=== PATIENT | female | born 1985 | race Caucasian/White ===

== ENCOUNTER 2025-01-09 09:20 | Outpatient (AMB) | payer BC, SELFPAY ==
--- NOTE | 2025-01-09 09:40 | MHC.PC.OV ---
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 Allergies Cats Allergy (Intermediate, Uncoded 01/09/25 09:43) Runny eyes, welts, runny nose Tobacco use date assessed: 01/09/25 Dental Screening Dental Screen Date: 01/09/25 Did you have a dental visit in the last 12 months?: Yes Did you have a dental problem in the last 6 months where you did not have access to dental care?: No Was dental information given to patient?: Patient has dentist HPI HPI Comments History of Present Illness Details This is a 39-year-old female presenting to establish care and have a physical exam. She transferred from [facility]. We discussed that I did not receive medical records yet. 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 She believes she received Tdap vaccine when she was with her 5-year-old daughter. Patient says overall she is healthy, but she has been feeling fatigued over the past 3-6 months. Her daughter was diagnosed with type 1 diabetes about a year ago. Sleep is disrupted frequently due to blood sugars. 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 She talked to the her needleworker about this at her recent annual exam at [facility]. Patient reports they did a thyroid test in a blood count, and both came back normal. Denies snoring or apneic episodes. No tick bites or skin rashes. She feels that she is handling stress okay, and she declines management and referrals for behavioral health. The patient's mother is diagnosed with BRCA2. She had some cancerous cells in her uterus. The patient's maternal grandmother had ovarian cancer and thyroid cancer. The patient has not been tested for genetic mutations. She had a left breast biopsy at [facility] that was negative for malignancy. Mammogram is up-to-date. She is referred to Dermatology for a skin exam. She has a few moles on her face that have been there a very long time, but she has noticed they are raised, and they used to be flat. She does not receive flu vaccine. ROS: Constitutional: No unexplained weight loss, fever, chills, fatigue or night sweats. Eyes: No vision changes, blurry vision, double vision, eye pain, eye redness, eye discharge. ENT: No hearing loss, sneezing, congestion, runny nose or sore throat. Respiratory: No shortness of breath, cough or sputum production. Cardiovascular: No chest pain, chest pressure or chest discomfort. No palpitations or pedal edema. Gastrointestinal: No anorexia, nausea, vomiting or diarrhea. No abdominal pain or blood in stool. Genitourinary: No dysuria, hematuria, urinary frequency. Neurologic: No headache, dizziness, syncope, unilateral weakness, ataxia, numbness or tingling in the extremities. Musculoskeletal: No muscle pain, back pain, joint pain or swelling. Hematologic/Lymphatics: No bleeding or bruising. No painful lymph nodes. Skin: No rash or itching. Endocrine: No cold or heat intolerance. No polyuria or polydipsia. Psychiatric: No depression or HI/SI. Physical exam: Constitutional: Alert, in no distress. Head: Normocephalic. Eyes: Pupils are equal, round and reactive to light. Extraocular muscles intact. Ear, Nose and Throat: Canals clear. TMs normal. Normal nasal mucosa. No nasal discharge. No oral lesions. Neck: Supple, Full range of motion. No lymphadenopathy. No palpable thyroid masses. Respiratory: Clear to auscultation. Cardiovascular: S1 S2 regular. No murmurs.. Gastrointestinal: Abdomen soft, non-tender, non-distended. Normal bowel sounds. No palpable masses.. Neurologic: No focal neurological deficits. Symmetric patellar reflexes. Moves all extremities spontaneously. Sensation intact bilaterally. Skin: Multiple, Small, raised dark brown nevi on the face with symmetric borders. Musculoskeletal: No gross deformities. Normal range of motion. Extremities: Warm and well perfused. No clubbing, cyanosis or edema. 3+ peripheral pulses bilaterally. Psychiatric: Normal mood and affect [facility] Medical History (Updated 01/09/25 @ 10:46 by EUGENIO Villanueva) Family history of BRCA2 gene positive Routine physical examination Screening for cardiovascular condition Fatigue Family History (Updated 01/09/25 @ 09:50 by Karime Hudson MA) Mother Hypertension Thyroid disease Father High cholesterol Diabetes Stroke Maternal Grandmother Thyroid disease Thyroid cancer Ovarian cancer Maternal Grandfather Prostate cancer Brother Stroke Social History (Updated 01/09/25 @ 09:45 by Karime Hudson MA) Housing: House Alcohol intake: never Patient Tobacco Use Status: Never used Tobacco e-Cigarette/Vaping Use: Never Used Second Hand Smoke Exposure: No service: No Current occupational status: employed 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 1. Little interest or pleasure in doing things: not at all 2. Feeling down, depressed, or hopeless: not at all 3. Trouble falling or staying asleep, or sleeping too much: nearly every day 4. Feeling tired or having little energy: nearly every day 5. Poor appetite or overeating: more than half the days 6. Feeling bad about yourself - or that you are a failure or have let yourself or your family down: not at all 7. Trouble concentrating on things, such as reading the newspaper or watching television: not at all 8. Moving or speaking so slowly that other people could have noticed. Or the opposite - being so fidgety or restless that you have been moving around a lot more than usual: not at all 9. Thoughts that you would be better off or of hurting yourself in some way: not at all Total score: 8 Depression Screening Interpretation: Positive Depression Screening Follow-up: Other (Patient denies depression. See HPI regarding fatigue and sleep.) Depression Screening Done: Yes 82272 - PHQ-9 Billing: Patient declined-do not bill Source: Developed by Drs. Marcus Fox, Florinda Alexander, Jermaine Peters and colleagues, with an educational cecy from [employer]. Thrive Questionnaire Date Thrive assessed: 01/09/25 I am a: Patient What is your living situation today?: I have a steady place to live Within the past 12 months, did the food you bought not last and you didn't have the money to get more?: Never true Within the past 12 months, did you worry whether your food would run out before you got money to buy more?: Never true Do you have trouble paying for medicines?: No Do you have trouble getting transportation to medical appointments?: No Do you have trouble paying your heating and electricity bill?: No Do you have trouble taking care of your child, family member or friend?: No Do you have trouble with day-to-day activities such as bathing, preparing meals, shopping, managing finances, etc.?: No Are you currently unemployed and looking for a job?: No Are you interested in more education?: No Please select the resources that you would like help with: None Currently or been in a relationship where the following occur: I choose not to answer THRIVE Score: 0 AUDIT C Alcohol Use Questionnaire (AUDIT-C) 1. How often do you have a drink containing alcohol?: Never Total Score: 0 SHANNON-7 AMB Questionnaire SHANNON-7 Date SHANNON - 7 assessed: 01/09/25 Feeling nervous, anxious, or on edge: 1 = Several days Not being able to stop or control worryin = Several days Worrying too much about different things: 1 = Several days Trouble relaxin = Several days Being so restless that it is hard to sit still: 0 = Not at all Becoming easily annoyed or irritable: 0 = Not at all Feeling afraid as if something awful might happen: 0 = Not at all Total SHANNON-7 score (0-4 normal; 5-9 mild; 10-14 moderate; 15-21 severe): 4 Source: Developed by Drs. Marcus Fox, Florinda Alexander, Jermaine Peters and colleagues, with an educational cecy from [employer]. SHANNON-7 Assessment Billing SHANNON-7 Assessment Tool: SHANNON-7 Assessment 73117 ACT Questionnaire In the past 4 weeks, how much of the time did your asthma keep you from getting as much done at work, school or at home?: None of the time Score: 5 Physical exam (Primary Care) Vital Signs: Last Vital Signs Temp 99.2 F 01/09/25 09:51 Pulse 75 01/09/25 09:51 BP 102/62 01/09/25 09:51 Pulse Ox 98 01/09/25 09:51 Oxygen Delivery Method Room Air 01/09/25 09:51 BMI result Body Mass Index 30.1 Tobacco/Smoking Status: Tobacco use Status Tobacco use date assessed 01/09/25 01/09/25 09:54 Patient Tobacco Use Status Never used Tobacco 01/09/25 09:54 e-Cigarette/Vaping Use Never Used 01/09/25 09:54 PHQ-9: PHQ-9 Score PHQ-9: Total score 8 01/09/25 09:54 Depression Screening Interpretation: Positive Depression Screening Follow-up: Other (Patient denies depression. See HPI regarding fatigue and sleep.) Thrive Assessment: Date of Thrive Assessment Date Thrive assessed 01/09/25 01/09/25 09:54 Currently or been in a relationship where the following occur: I choose not to answer Coding Level of Care Code New Pt Prev Care 40-64y(96628) Diagnoses Fatigue R53.83 Screening for cardiovascular condition Z13.6 Routine physical examination Z00.00 Additional Codes SHANNON-7 Assessment Billing - SHANNON-7 Assessment Tool: SHANNON-7 Assessment [id number] ([id number]) Assessment & Plan Assessment & Plan (1) Fatigue: Code(s): R53.83 - Other fatigue Category: Medical Plan: Patient reports CBC and TSH at [facility] were normal. She has signed a release for records. We will check additional labs . We discussed this may be due to sleep disruptions and stress. (2) Screening for cardiovascular condition: Code(s): Z13.6 - Encounter for screening for cardiovascular disorders Category: Medical (3) Routine physical examination: Code(s): Z00.00 - Encounter for general adult medical examination without abnormal findings Category: Medical Plan: Patient is seen today for a routine physical. As part of this visit we reviewed the following issues, which are considered and essential part of preventative health in this age group: - Breast Cancer screening - Annual Environmental Field Services Technician exam - Screening for colon cancer - Blood pressure screening annually - Cholesterol screening - Osteoporosis prevention including calcium/vitamin D intake, weight bearing exercise & smoking cessation - Nutritional and exercise counseling - Counseling of injury prevention including fire prevention, smoke alarms and seat belt usage - Screening for depression - Prevention of and/or testing for infectious diseases - Education about skin cancer-refer to dermatology for skin exam - Recommendations about immunizations - Recommendation of an eye exam - Screening for substance abuse - Genetic cancer risk screening- refer to [facility] Return in 1 year for annual physical exam. Orders: Orders Vitamin D 25-OH (D2 and D3) Today M85.80 - Other specified disorders of bone density and structure, unspecified site, R53.83 - Other fatigue, Z00.00 - Encounter for general adult medical examination without abnormal findings, Z13.6 - Encounter for screening for cardiovascular disorders Comprehensive Met. Panel Today R53.83 - Other fatigue, Z00.00 - Encounter for general adult medical examination without abnormal findings, Z13.6 - Encounter for screening for cardiovascular disorders Lipid Panel Today E78.5 - Hyperlipidemia, unspecified, R53.83 - Other fatigue, Z00.00 - Encounter for general adult medical examination without abnormal findings, Z13.6 - Encounter for screening for cardiovascular disorders Lyme IgG/IgM w/reflex to WB Today R53.83 - Other fatigue, Z00.00 - Encounter for general adult medical examination without abnormal findings, Z13.6 - Encounter for screening for cardiovascular disorders Referrals Dermatology Referral Z12.83 - Encounter for screening for malignant neoplasm of skin Genetics Referral Z84.81 - Family history of carrier of genetic disease
[2025-01-09 09:51] VITALS: BP 102/62; PULSE 75; TEMP 37.3; O2SAT 98; BMI 30.1
--- OUTSIDE RECORDS SUMMARY | 2025-01-09 10:20 | XMS_ITS | Clinical Summary ---
Author Organization [facility] [address] Address [address] [place] [address] Phone Care Team Providers Care Economic Forecaster Name Role Phone Alla Branham Primary Care Provider [phone] Allergies Active Allergy Reactions Criticality Noted Date Comments Nut - Unspecified Medium 01/17/2019 Medications bisacodyL (DULCOLAX) 5 mg EC tablet Take 4 tablets by mouth right before your first dose of liquid prep. 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 Overview (08/22/2024): Saw Dr Malone to discuss surgery 04/05 Encounters Date Type Department Care Team Description 11/10/2024 12:55 PM EST - 11/10/2024 11:59 PM EST Hospital Encounter Radiology Department - [address] [phone] Abnormal mammogram Discharge Disposition: Home or Self Care 11/10/2024 12:39 PM EST - 11/10/2024 11:59 PM EST Hospital Encounter Radiology Department - [address] [phone] Abnormal mammogram Discharge Disposition: Home or Self Care 11/07/2024 2:46 PM EST - 11/07/2024 11:59 PM EST Hospital Encounter Radiology Department - [address] [phone] Abnormal mammogram Discharge Disposition: Home or Self Care 11/07/2024 2:46 PM EST - 11/07/2024 11:59 PM EST Hospital Encounter Radiology Department - [address] [phone] Abnormal mammogram Discharge Disposition: Home or Self Care 10/25/2024 7:32 AM EST - 10/25/2024 11:59 PM EST Hospital Encounter Radiology Department - [address] [phone] Encounter for screening mammogram for malignant neoplasm of breast Discharge Disposition: Home or Self Care 10/17/2024 1:30 PM EST Office Visit Obstetrics and Gynecology - [address] [phone] Edwina Sosa, ADIS Women's annual routine gynecological examination (Primary Dx); Menorrhagia with regular cycle; Encounter for screening mammogram for malignant neoplasm of breast; Family history of BRCA2 gene positive from Last 3 Months Immunizations Name Administration Dates Next Due Tdap Tetanus diptheria acell ular pertussis (Boostrix; Adacel) 7yo and older 08/14/2014,03/08/2009 Surgical History Surgery Date Site/Laterality Comments WISDOM TOOTH EXTRACTION 2007 PROCEDURE: HISTORICAL WISDOM TEETH EXTRACTION; COMMENT: no complications Medical History Medical History Date Comments Covid-19 DX:COVID-19 Family History Medical History Relation Name Comments Other: polycystic KD Aunt paterna l aunt Other: meningitis Brother 1 and enceph alitis from mosquito Other: high cholesterol Father bord [place] diabetes;m poss hep B Prostate cancer Maternal Grandfather mets to bone; started in his 70s Ovarian cancer Maternal Grandmother mets present-Pt treated in [place] Anemia Mother Hypertension Mother Multiple sclerosis Other recent dx at age 30 Emphysema Paternal Grandfather - age 72 Kidney failure Paternal Grandmother on di alysis; age 68. Hx PCK dis Breast cancer Neg Hx Colon cancer Neg Hx Kidney cancer Neg Hx Pancreatic cancer Neg Hx Uterine cancer Neg Hx Relation Name Status Comments Aunt Brother 1 Brother 2 Alive meningitis in p ast Father Alive Maternal Grandfather (Age 71) pr ostate cancer Maternal Grandmother Alive thyroid surgery, blind one eye Mother Alive Other Paternal Grandfather (Age 70s) h ead trauma and in surgery, emphysema Paternal Grandmother (Age 70) E SRD, Sister Alive seymour's Palsy Social History Tobacco Use Types Packs/Day Years Used Date Smoking Tobacco: Never Smokeless Tobacco: Never Alcohol Use Standard Drinks/Week Comments No 0 (1 standard drink = 0.6 oz pur e alcohol) Comments No Sex and Gender Information Value Date Recorded Sex Assigned at Not on file Legal Sex Female 11:26 AM EST Gender Identity Not on file Sexual Orientation Not on file Obstetrics History Para Term AB IAB SAB Ectopic Multiple Livin g Live Births 3 2 2 0 1 1 0 0 0 2 2 Date Outcome GA Total Labor Labor/2nd/3rd Weight Sex Type Anes PTL Sola A1 A5 Name Clin IAB 2012 Term M Vag-S pont Living 2018 Term F Living Last Filed Vital Signs Vital Sign Reading Time Taken Comments Blood Pressure 115/66 10/17/2024 1:32 PM EST Pulse 79 10/17/2024 1:32 PM EST Temperature - - Respiratory Rate 14 10/17/2024 1:32 PM EST Oxygen Saturation - - Inhaled Oxygen Concentration - - Weight 97.8 kg (215 lb 9.6 oz) 10/17/2024 1:32 P M EST Height 175.3 cm (5' 9 ) 10/17/2024 1:32 PM EST Body Mass Index 31.84 10/17/2024 1:32 PM EST Plan of Treatment Health Maintenance Due Date Last Done Comments COVID-19 Vaccine (#1) 12/22/1988 Hepatitis B Vaccines (1 of 3 - 19+ 3-dose series) 12/22/2002 Pneumococcal Vaccine: Pediatrics (0 to 5 Years) and At-Risk Patients (6 to 64 Years) (1 of 2 - PCV) 12/22/2002 Depression Screening 08/26/2022 HIV Screening 08/26/2022 Hepatitis C Screening 08/26/2022 Social Influencers of Health Screening 08/26/2022 DTaP,Tdap,and Td Vaccines (4 - Td or Tdap) 08/14/2024 08/14/2014, 04/22/2013, 03/08/2009 Influenza Vaccine (Season Ended) 2025 Cholesterol Screening (Lipid Panel) 03/25/2026 03/25/2021 Breast Cancer Screening 11/07/2026 11/07/19, 10/25/2024 Cervical Cancer Screening: HPV 10/17/2029 0 10/17/2024, 06/28/2018 MMR Vaccines Aged Out 04/24/2013 No longer eligi ble based on patient's age to complete this topic HIB Vaccines Aged Out No longer eligi ble based on patient's age to complete this topic HPV Vaccines Aged Out No longer eligi ble based on patient's age to complete this topic Hepatitis A Vaccines Aged Out No long er eligible based on patient's age to complete this topic IPV Vaccines Aged Out No longer eligi ble based on patient's age to complete this topic Meningococcal ACWY Vaccine Aged Out N o longer eligible based on patient's age to complete this topic Meningococcal B Vaccine Aged Out No l onger eligible based on patient's age to complete this topic RSV Immunization Patients Under 20 months Aged Out No longer eligible b ased on patient's age to complete this topic Varicella Vaccines Aged Out No longer eligible based on patient's age to complete this topic Procedures Procedure Name Priority Date/Time Associated Diagnosis Comments MG MAMMO DIGITAL DIAGNOSTIC CLIP POST US/MR GUIDE LEFT Routine 11/10/2024 1:14 PM EST Abnormal mammogram US BX BREAST PERC 1ST LESION LEFT Routine 11/10/2024 1:07 PM EST Abnormal mammogram TISSUE EXAM Routine 11/10/2024 1:00 PM EST Abnormal mammogram US BREAST LIMITED BILAT Routine 11/07/2024 3:13 PM EST Abnormal mammogram MG MAMMO DIGITAL DIAGNOSTIC W ROMARIO BILAT Routine 11/07/2024 2:58 PM EST Abnormal mammogram MG MAMMO DIGITAL SCREENING W ROMARIO BILAT Routine 10/25/2024 7:49 AM EST Encounter for screening mammogram for malignant neoplasm of breast COMPLETE BLOOD COUNT Routine 10/17/2024 2:36 PM EST Menorrhagia with regular cycle THYROID STIMULATING HORMONE WITH REFLEX TO FREE T4 AND FREE T3 Routine 10/17/2024 2:36 PM EST Menorrhagia with regular cycle PAP SMEAR Routine 10/17/2024 1:58 PM EST Women's annual routine gynecological examination HPV WITH REFLEX GENOTYPE Routine 10/17/2024 1:58 PM EST Women's annual routine gynecological examination LIPID PANEL Routine 03/25/2021 from Last 3 Months or Most Recently Relevant to Health Maintenance Results * MG Mammo Digital Diagnostic Clip Post US/MR Guide Left (11/10/2024 1:14 PM EST) Anatomical Region Laterality Modality Breast Left Mammography 11/10/2024 1:49 PM EST Addenda Addendum by Melissa Thayer MD on 11/11/2024 2:20 PM EST Addendum: Left breast mass, 10 o'clock, 5 cm from nipple, ultrasound-guided core biopsy (heart clip): -Fibroadenoma with foci of mild usual ductal hyperplasia and adenosis with few associated microcalcifications. -No atypical hyperplasia, no carcinoma in situ and no invasive carcinoma identified. Pathology is concordant with imaging findings. Benign results discussed with the patient by telephone on 11/11/2024. -------- ADDENDUM -------- Dictated By: Melissa Thayer Dictated Date: 11/11/2024 14:18 ET Assigned Physician: Melissa Thayer Reviewed and Electronically Signed By: Melissa Thayer Signed Date: 11/11/2024 14:20 ET Workstation ID: [id number] Transcribed By: Self Edit Transcribed Date: 11/11/2024 14:18 ET Impressions 11/10/2024 1:53 PM EST Seemingly successful ultrasound-guided core biopsy of a left breast lesion. ??Pathologic analysis is pending. POS - [id number] -------- FINAL REPORT -------- Dictated By: Melissa Thayer Dictated Date: 11/10/2024 13:49 ET Assigned Physician: Melissa Thayer Reviewed and Electronically Signed By: Melissa Thayer Signed Date: 11/10/2024 13:53 ET Workstation ID: [id number] Transcribed By: Self Edit Transcribed Date: 11/10/2024 13:49 ET Narrative 11/10/2024 1:53 PM EST EXAM: Ultrasound-guided core biopsy and unilateral digital diagnostic mammogram left breast. FINDINGS: Patient presents for ultrasound-guided biopsy of a 1.1 x 0.9 x 0.8 cm lesion at the 10 o'clock position of the left breast, 5 cm from the nipple. ??Prior imaging from 11/07/2024 and 10/25/2024 was reviewed. ??Risks and benefits of the procedure including specific risks of hemorrhage and infection were discussed with the patient before beginning the procedure. ??Written and verbal consent to proceed were given. ?? The overlying skin was prepped with betadine and anesthetized with 1% buffered lidocaine. ??A skin linda was then made. ??Using ultrasound guidance, 5 passes were made into the lesion using a 14 gauge Bard Marquee needle. ??A heart marker was deployed in the lesion. ??No immediate complications. ??No postprocedural hematoma. Unilateral left digital diagnostic mammogram was performed following ultrasound-guided biopsy with clip placement. New biopsy marker in the inner breast which corresponds with the focal asymmetry of concern indicating concordance of the mammographic and sonographic findings. ??No significant hematoma is present. Procedure Note Melissa Thayer MD - 11/10/2024 EXAM: Ultrasound-guided core biopsy and unilateral digital diagnosticmammogram left breast. FINDINGS: Patient presents for ultrasound-guided biopsy of a 1.1 x 0.9 x 0.8 cmlesion at the 10 o'clock position of the left breast, 5 cm from thenipple. Prior imaging from 11/07/2024 and 10/25/2024 was reviewed. Risksand benefits of the procedure including specific risks of hemorrhage andinfection were discussed with the patient before beginning the procedure.Written and verbal consent to proceed were given. The overlying skin was prepped with betadine and anesthetized with 1%buffered lidocaine. A skin linda was then made. Using ultrasoundguidance, 5 passes were made into the lesion using a 14 gauge Bard Marqueeneedle. A heart marker was deployed in the lesion. No immediatecomplications. No postprocedural hematoma. Unilateral left digital diagnostic mammogram was performed followingultrasound- guided biopsy with clip placement. New biopsy marker in theinner breast which corresponds with the focal asymmetry of concernindicating concordance of the mammographic and sonographic findings. Nosignificant hematoma is present. IMPRESSION: Seemingly successful ultrasound-guided core biopsy of a left breastlesion. Pathologic analysis is pending. POS - [id number] -------- FINAL REPORT -------- Dictated By: Melissa Thayer Dictated Date: 11/10/2024 13:49 ET Assigned Physician: Melissa Thayer Reviewed and Electronically Signed By: Melissa Thayer Signed Date: 11/10/2024 13:53 ET Workstation ID: [id number] Transcribed By: Self Edit Transcribed Date: 11/10/2024 13:49 ET us Edwina Sosa CN IMG BI PROCEDURES Edited Re sult - Final * US Bx Breast Perc 1st Lesion Left (11/10/2024 1:07 PM EST) Anatomical Region Laterality Modality Breast Left Ultrasound 11/10/2024 1:49 PM EST Addenda Addendum by Melissa Thayer MD on 11/11/2024 2:20 PM EST Addendum: Left breast mass, 10 o'clock, 5 cm from nipple, ultrasound-guided core biopsy (heart clip): -Fibroadenoma with foci of mild usual ductal hyperplasia and adenosis with few associated microcalcifications. -No atypical hyperplasia, no carcinoma in situ and no invasive carcinoma identified. Pathology is concordant with imaging findings. Benign results discussed with the patient by telephone on 11/11/2024. -------- ADDENDUM -------- Dictated By: Melissa Thayer Dictated Date: 11/11/2024 14:18 ET Assigned Physician: Melissa Thayer Reviewed and Electronically Signed By: Melissa Thayer Signed Date: 11/11/2024 14:20 ET Workstation ID: [id number] Transcribed By: Self Edit Transcribed Date: 11/11/2024 14:18 ET Impressions 11/10/2024 1:53 PM EST Seemingly successful ultrasound-guided core biopsy of a left breast lesion. ??Pathologic analysis is pending. POS - [id number] -------- FINAL REPORT -------- Dictated By: Melissa Thayer Dictated Date: 11/10/2024 13:49 ET Assigned Physician: Melissa Thayer Reviewed and Electronically Signed By: Melissa Thayer Signed Date: 11/10/2024 13:53 ET Workstation ID: [id number] Transcribed By: Self Edit Transcribed Date: 11/10/2024 13:49 ET Narrative 11/10/2024 1:53 PM EST EXAM: Ultrasound-guided core biopsy and unilateral digital diagnostic mammogram left breast. FINDINGS: Patient presents for ultrasound-guided biopsy of a 1.1 x 0.9 x 0.8 cm lesion at the 10 o'clock position of the left breast, 5 cm from the nipple. ??Prior imaging from 11/07/2024 and 10/25/2024 was reviewed. ??Risks and benefits of the procedure including specific risks of hemorrhage and infection were discussed with the patient before beginning the procedure. ??Written and verbal consent to proceed were given. ?? The overlying skin was prepped with betadine and anesthetized with 1% buffered lidocaine. ??A skin linda was then made. ??Using ultrasound guidance, 5 passes were made into the lesion using a 14 gauge Bard Marquee needle. ??A heart marker was deployed in the lesion. ??No immediate complications. ??No postprocedural hematoma. Unilateral left digital diagnostic mammogram was performed following ultrasound-guided biopsy with clip placement. New biopsy marker in the inner breast which corresponds with the focal asymmetry of concern indicating concordance of the mammographic and sonographic findings. ??No significant hematoma is present. Procedure Note Melissa Thayer MD - 11/10/2024 EXAM: Ultrasound-guided core biopsy and unilateral digital diagnosticmammogram left breast. FINDINGS: Patient presents for ultrasound-guided biopsy of a 1.1 x 0.9 x 0.8 cmlesion at the 10 o'clock position of the left breast, 5 cm from thenipple. Prior imaging from 11/07/2024 and 10/25/2024 was reviewed. Risksand benefits of the procedure including specific risks of hemorrhage andinfection were discussed with the patient before beginning the procedure.Written and verbal consent to proceed were given. The overlying skin was prepped with betadine and anesthetized with 1%buffered lidocaine. A skin linda was then made. Using ultrasoundguidance, 5 passes were made into the lesion using a 14 gauge Bard Marqueeneedle. A heart marker was deployed in the lesion. No immediatecomplications. No postprocedural hematoma. Unilateral left digital diagnostic mammogram was performed followingultrasound- guided biopsy with clip placement. New biopsy marker in theinner breast which corresponds with the focal asymmetry of concernindicating concordance of the mammographic and sonographic findings. Nosignificant hematoma is present. IMPRESSION: Seemingly successful ultrasound-guided core biopsy of a left breastlesion. Pathologic analysis is pending. POS - [id number] -------- FINAL REPORT -------- Dictated By: Melissa Thayer Dictated Date: 11/10/2024 13:49 ET Assigned Physician: Melissa Thayer Reviewed and Electronically Signed By: Melissa Thayer Signed Date: 11/10/2024 13:53 ET Workstation ID: [id number] Transcribed By: Self Edit Transcribed Date: 11/10/2024 13:49 ET us [facility] US PROCEDURES Edited Re shoshana - Final * Tissue exam (11/10/2024 1:00 PM EST) Final Diagnosis Left breast mass, 10 o'clock, 5 cm from nipple, ultrasound-guide d core biopsy (heart clip): - Fibroadenoma with foci of mild usual ductal hyperplasia and adenosis with few associated microcalcificati ons. - No atypical hyperplasia, no carcinoma in situ and no invasive carcinoma identified. 11/11/2024 9:07 AM EST [facility] Clinical Information 10:00 LEFT BREAST 5 CMFN- HYPOECHOIC SOLID WELL CIRCUMSCRIBED LESION ?FIBROADENOMA VS OTHER. HEART CLIP [id number] 11/11/2024 9:07 AM EST [facility] Gross Description A. Breast, Left, 10:00 5 cmfn - hypoechoic solid well circumscribed lesion ?fibroadenoma vs other. heart clip [id number]: Labeled 1000 lef breast L . Received in formalin, with Telfa, is a is a 1.3 x 0.8 x 0.15 cm aggregate of soft to rubbery, yellow-white, thin, delicate fibrofatty tissue cores which are submitted in toto, between sponges, in one cassette, multiple pieces, x 3. Time removed from patient (warm ends < cold ischemia starts): 1:00 PM 11/10/2024 Time put in formalin (cold ischemia ends): 1:05 PM 11/10/2024 Total cold ischemic time: 5 minutes Time tissue exits final stage of formalin on tissue processor: 12:00 AM 11/11/2024 Total fixation time (Ideally greater than 6 hours and less than 72 hours): Approximately 11 hours TS 11/11/2024 9:07 AM [facility] Disclaimer Unless otherwise specified, all tissue is 10% NB formalin fixed and paraffin embedded. 11/11/2024 9:07 AM [facility] Tissue Left breast structure / Unknown 11/10/2024 1:00 PM EST 11/10/2024 4:44 PM EST Comment:10:00 LEFT BREAST 5 CMFN- HYPOECHOIC SOLID WELL CIRCUMSCRIBED LESION ?FIBROADENOMA VS OTHER. HEART CLIP [id number] us Melissa Thayer MD LAB PATHOLOGY ORDERABLES Final R esult [facility] [address] [place] [address], * (ABNORMAL) US Breast Limited bilat (11/07/2024 3:13 PM EST) Anatomical Region Laterality Modality Breast Bilateral Ultrasound 11/07/2024 3:34 PM EST Impressions 11/07/2024 3:39 PM EST 1. ??Right: No focal abnormality to correspond to mammographic finding. ??No mammographic evidence of malignancy 2. Left: Mammographic finding corresponds to a suspicious mass at 10:00 which requires ultrasound-guided biopsy 3. Heterogeneously dense ?? Findings and recommendations were conveyed to the patient. ? BI-RADS CATEGORY: 4 - SUSPICIOUS RECOMMENDATION: Core biopsy of ??left breast recommended. Core biopsy of ??left breast recommended. Core biopsy of ??left breast recommended. Core biopsy of ??left breast recommended. Ultrasound-guided biopsy for left breast 10:00 mass Mammo Location: [facility], [address] [place] [address], [id number], . -------- FINAL REPORT -------- Dictated By: Dane Bautista Dictated Date: 11/07/2024 15:34 ET Assigned Physician: Dane Bautista Reviewed and Electronically Signed By: Dane Bautista Signed Date: 11/07/2024 15:39 ET Workstation ID: [id number] Transcribed By: Self Edit Transcribed Date: 11/07/2024 15:34 ET Narrative 11/07/2024 3:39 PM EST BILATERALDIGITAL DIAGNOSTIC 3D MAMMOGRAPHY HISTORY: Workup for right breast cc view lateral posterior depth asymmetry and left breast upper inner middle depth focal asymmetry COMPARISON: Mammogram from 10/25/2024 Technique: Bilateral full field ML, bilateral CC spot compression, left breast MLO spot compression 3-D FINDINGS: Right: Right breast cc view lateral posterior depth asymmetry decreases in density on spot compression and is consistent with typically benign parenchymal tissue. Left: Left breast upper inner middle depth focal asymmetry persists on spot compression. ??Sonographic evaluation demonstrates a suspicious hypoechoic mass at 10:00 which likely corresponds to mammographic finding. BREAST DENSITY: C - The breasts are heterogeneously dense which may obscure small masses. EXAM: BILATERAL BREAST TARGETED ULTRASOUND EVALUATION TECHNIQUE: Ultrasonographic examination is performed using a ??linear array transducer. Targeted right breast ultrasound from 12:00 to 6:00 of the lateral breast and left breast ultrasound from 9:00 to 12:00 to evaluate for mammographic findings. Real-time sonographic scanning was also performed by the radiologist FINDINGS: Right: From 12:00 to 6:00 of the lateral breast, no sonographic evidence of malignancy or focal abnormality to correspond to mammographic finding Left: At 10:00, there is a 0.9 x 1.1 x 0.8 cm hypoechoic solid lesion without internal vascularity which corresponds to mammographic finding and is suspicious Procedure Note Dane Bautista MD - 11/07/2024 BILATERALDIGITAL DIAGNOSTIC 3D MAMMOGRAPHY HISTORY: Workup for right breast cc view lateral posterior depth asymmetryand left breast upper inner middle depth focal asymmetry COMPARISON: Mammogram from 10/25/2024 Technique: Bilateral full field ML, bilateral CC spot compression, leftbreast MLO spot compression 3-D FINDINGS: Right: Right breast cc view lateral posterior depth asymmetry decreases indensity on spot compression and is consistent with typically benignparenchymal tissue. Left: Left breast upper inner middle depth focal asymmetry persists on spotcompression. Sonographic evaluation demonstrates a suspicious hypoechoicmass at 10:00 which likely corresponds to mammographic finding. BREAST DENSITY: C - The breasts are heterogeneously dense which mayobscure small masses. EXAM: BILATERAL BREAST TARGETED ULTRASOUND EVALUATION TECHNIQUE: Ultrasonographic examination is performed using a linear arraytransducer. Targeted right breast ultrasound from 12:00 to 6:00 of thelateral breast and left breast ultrasound from 9:00 to 12:00 to evaluatefor mammographic findings. Real- time sonographic scanning was alsoperformed by the radiologist FINDINGS: Right: From 12:00 to 6:00 of the lateral breast, no sonographic evidence ofmalignancy or focal abnormality to correspond to mammographic finding Left: At 10:00, there is a 0.9 x 1.1 x 0.8 cm hypoechoic solid lesion withoutinternal vascularity which corresponds to mammographic finding and issuspicious IMPRESSION: 1. Right: No focal abnormality to correspond to mammographic finding. Nomammographic evidence of malignancy 2. Left: Mammographic finding corresponds to a suspicious mass at 10:00which requires ultrasound-guided biopsy 3. Heterogeneously dense Findings and recommendations were conveyed to the patient. BI-RADS CATEGORY: 4 - SUSPICIOUS RECOMMENDATION: Core biopsy of left breast recommended. Core biopsy of left breastrecommended. Core biopsy of left breast recommended. Core biopsy of leftbreast recommended. Ultrasound-guided biopsy for left breast 10:00 mass Mammo Location: [facility], [address] [place] [address], [id number], . -------- FINAL REPORT -------- Dictated By: Dane Bautista Dictated Date: 11/07/2024 15:34 ET Assigned Physician: Dane Bautista Reviewed and Electronically Signed By: Dane Bautista Signed Date: 11/07/2024 15:39 ET Workstation ID: [id number] Transcribed By: Self Edit Transcribed Date: 11/07/2024 15:34 ET us Edwina Sosa CNM IMG US PROCEDURES Final Res ult * (ABNORMAL) MG Mammo Digital Diagnostic w Romario bilat (11/07/2024 2:58 PM EST) Anatomical Region Laterality Modality Breast Bilateral Mammography 11/07/2024 3:34 PM EST Impressions 11/07/2024 3:39 PM EST 1. ??Right: No focal abnormality to correspond to mammographic finding. ??No mammographic evidence of malignancy 2. Left: Mammographic finding corresponds to a suspicious mass at 10:00 which requires ultrasound-guided biopsy 3. Heterogeneously dense ?? Findings and recommendations were conveyed to the patient. ? BI-RADS CATEGORY: 4 - SUSPICIOUS RECOMMENDATION: Core biopsy of ??left breast recommended. Core biopsy of ??left breast recommended. Core biopsy of ??left breast recommended. Core biopsy of ??left breast recommended. Ultrasound-guided biopsy for left breast 10:00 mass Mammo Location: [facility], [address] [place] [address], [id number], . -------- FINAL REPORT -------- Dictated By: Dane Bautista Dictated Date: 11/07/2024 15:34 ET Assigned Physician: Dane Bautista Reviewed and Electronically Signed By: Dane Bautista Signed Date: 11/07/2024 15:39 ET Workstation ID: [id number] Transcribed By: Self Edit Transcribed Date: 11/07/2024 15:34 ET Narrative 11/07/2024 3:39 PM EST BILATERALDIGITAL DIAGNOSTIC 3D MAMMOGRAPHY HISTORY: Workup for right breast cc view lateral posterior depth asymmetry and left breast upper inner middle depth focal asymmetry COMPARISON: Mammogram from 10/25/2024 Technique: Bilateral full field ML, bilateral CC spot compression, left breast MLO spot compression 3-D FINDINGS: Right: Right breast cc view lateral posterior depth asymmetry decreases in density on spot compression and is consistent with typically benign parenchymal tissue. Left: Left breast upper inner middle depth focal asymmetry persists on spot compression. ??Sonographic evaluation demonstrates a suspicious hypoechoic mass at 10:00 which likely corresponds to mammographic finding. BREAST DENSITY: C - The breasts are heterogeneously dense which may obscure small masses. EXAM: BILATERAL BREAST TARGETED ULTRASOUND EVALUATION TECHNIQUE: Ultrasonographic examination is performed using a ??linear array transducer. Targeted right breast ultrasound from 12:00 to 6:00 of the lateral breast and left breast ultrasound from 9:00 to 12:00 to evaluate for mammographic findings. Real-time sonographic scanning was also performed by the radiologist FINDINGS: Right: From 12:00 to 6:00 of the lateral breast, no sonographic evidence of malignancy or focal abnormality to correspond to mammographic finding Left: At 10:00, there is a 0.9 x 1.1 x 0.8 cm hypoechoic solid lesion without internal vascularity which corresponds to mammographic finding and is suspicious Procedure Note Dane Bauitsta MD - 11/07/2024 BILATERALDIGITAL DIAGNOSTIC 3D MAMMOGRAPHY HISTORY: Workup for right breast cc view lateral posterior depth asymmetryand left breast upper inner middle depth focal asymmetry COMPARISON: Mammogram from 10/25/2024 Technique: Bilateral full field ML, bilateral CC spot compression, leftbreast MLO spot compression 3-D FINDINGS: Right: Right breast cc view lateral posterior depth asymmetry decreases indensity on spot compression and is consistent with typically benignparenchymal tissue. Left: Left breast upper inner middle depth focal asymmetry persists on spotcompression. Sonographic evaluation demonstrates a suspicious hypoechoicmass at 10:00 which likely corresponds to mammographic finding. BREAST DENSITY: C - The breasts are heterogeneously dense which mayobscure small masses. EXAM: BILATERAL BREAST TARGETED ULTRASOUND EVALUATION TECHNIQUE: Ultrasonographic examination is performed using a linear arraytransducer. Targeted right breast ultrasound from 12:00 to 6:00 of thelateral breast and left breast ultrasound from 9:00 to 12:00 to evaluatefor mammographic findings. Real- time sonographic scanning was alsoperformed by the radiologist FINDINGS: Right: From 12:00 to 6:00 of the lateral breast, no sonographic evidence ofmalignancy or focal abnormality to correspond to mammographic finding Left: At 10:00, there is a 0.9 x 1.1 x 0.8 cm hypoechoic solid lesion withoutinternal vascularity which corresponds to mammographic finding and issuspicious IMPRESSION: 1. Right: No focal abnormality to correspond to mammographic finding. Nomammographic evidence of malignancy 2. Left: Mammographic finding corresponds to a suspicious mass at 10:00which requires ultrasound-guided biopsy 3. Heterogeneously dense Findings and recommendations were conveyed to the patient. BI-RADS CATEGORY: 4 - SUSPICIOUS RECOMMENDATION: Core biopsy of left breast recommended. Core biopsy of left breastrecommended. Core biopsy of left breast recommended. Core biopsy of leftbreast recommended. Ultrasound-guided biopsy for left breast 10:00 mass Mammo Location: [facility], [address] [place] [address], [address], . -------- FINAL REPORT -------- Dictated By: Dane Bautista Dictated Date: 11/07/2024 15:34 ET Assigned Physician: Dane Bautista Reviewed and Electronically Signed By: Dane Bautista Signed Date: 11/07/2024 15:39 ET Workstation ID: [id number] Transcribed By: Self Edit Transcribed Date: 11/07/2024 15:34 ET Edwina Sosa CNM IMG BI PROCEDURES Final Res ult * (ABNORMAL) MG Mammo Digital Screening w Romario bilat (10/25/2024 7:49 AM EST) Anatomical Region Laterality Modality Breast Bilateral Mammography 10/25/2024 5:50 PM EST Impressions 10/25/2024 6:00 PM EST Recommend additional imaging bilaterally. ??The radiology department will recall the patient. CALLBACK VIEWS: ?? Left: 90 ML and spot compression MLO and CC views, all with tomosynthesis; ultrasound Right: 90 ML and spot compression CC views, all with tomosynthesis; ultrasound BREAST DENSITY: C - The breasts are heterogeneously dense which may obscure small masses. BI-RADS CATEGORY: 0 - INCOMPLETE - NEED ADDITIONAL IMAGING EVALUATION RECOMMENDATION: Additional bilateral breast imaging recommended. Mammo Location: [facility], [address] [place] [address], [address], . -------- FINAL REPORT -------- Dictated By: Melissa Thayer Dictated Date: 10/25/2024 17:50 ET Assigned Physician: Melissa Thayer Reviewed and Electronically Signed By: Melissa Thayer Signed Date: 10/25/2024 18:00 ET Workstation ID: [id number] Transcribed By: Self Edit Transcribed Date: 10/25/2024 17:50 ET Narrative 10/25/2024 6:00 PM EST EXAM: Screening mammogram CLINICAL: 38 years old, Female, routine annual exam. COMPARISON: This is a baseline exam. TECHNIQUE: Bilateral MLO and CC views were obtained digitally with digital breast tomosynthesis. Computer-aided detection was utilized in evaluation of this exam (CAD). FINDINGS: Focal asymmetry in the inner left breast at the 9 o'clock position at the anterior/middle depth. ??Additional imaging evaluation recommended. Asymmetry in the posterior outer right breast on the CC view. ??Additional imaging evaluation recommended. No architectural distortion or suspicious calcifications in either breast. Procedure Note Melissa Thayer MD - 10/25/2024 EXAM: Screening mammogram CLINICAL: 38 years old, Female, routine annual exam. COMPARISON: This is a baseline exam. TECHNIQUE: Bilateral MLO and CC views were obtained digitally with digitalbreast tomosynthesis. Computer-aided detection was utilized in evaluationof this exam (CAD). FINDINGS: Focal asymmetry in the inner left breast at the 9 o'clock position at theanterior/middle depth. Additional imaging evaluation recommended. Asymmetry in the posterior outer right breast on the CC view. Additionalimaging evaluation recommended. No architectural distortion or suspicious calcifications in eitherbreast. IMPRESSION: Recommend additional imaging bilaterally. The radiology department willrecall the patient. CALLBACK VIEWS: Left: 90 ML and spot compression MLO and CC views, all with tomosynthesis;ultrasound Right: 90 ML and spot compression CC views, all with tomosynthesis;ultrasound BREAST DENSITY: C - The breasts are heterogeneously dense which mayobscure small masses. BI-RADS CATEGORY: 0 - INCOMPLETE - NEED ADDITIONAL IMAGING EVALUATION RECOMMENDATION: Additional bilateral breast imaging recommended. Mammo Location: [facility], [address] [place] [address], [address], . -------- FINAL REPORT -------- Dictated By: Melissa Thayer Dictated Date: 10/25/2024 17:50 ET Assigned Physician: Melissa Thayer Reviewed and Electronically Signed By: Melissa Thayer Signed Date: 10/25/2024 18:00 ET Workstation ID: [id number] Transcribed By: Self Edit Transcribed Date: 10/25/2024 17:50 ET us Edwina Sosa CNM IMG BI PROCEDURES Final Res ult * Thyroid stimulating hormone with reflex to free t4 and free t3 (10/17/2024 2:36 PM EST) TSH 0.91 0.40 - 4.00 mcIU/mL LAB CHEMISTRY METHOD 10/17/2024 6:07 PM EST [facility] Blood Venous blood specimen / Unknown Venipuncture / Unknown 10/17/2024 2:36 PM EST 10/17/2024 2:36 PM EST us Edwina Sosa CNM LAB BLOOD ORDERABLES Final Result [facility] [address] [place] [address], [place] [phone] * (ABNORMAL) Complete blood count (10/17/2024 2:36 PM EST) [facility] WBC 8.8 4.8 - 10.8 K/mcL LAB HEMETOLOGY METHOD 10/17/2024 5:54 PM [facility] RBC 4.20 3.80 - 4.80 M/mcL LAB HEMETOLOGY METHOD 10/17/2024 5:54 PM [facility] Hemoglobin 12.3 11.5 - 16.0 g/dL LAB HEMETOLOGY METHOD 10/17/2024 5:54 PM [facility] Hematocrit 38.5 35.0 - 47.0 % LAB HEMETOLOGY METHOD 10/17/2024 5:54 PM [facility] MCV 92.1 79.0 - 98.0 FL LAB HEMETOLOGY METHOD 10/17/2024 5:54 PM [facility] MCH 29.4 27.0 - 32.0 pcg LAB HEMETOLOGY METHOD 10/17/2024 5:54 PM [facility] MCHC 31.9(L) 32.0 - 37.0 g/dL LAB HEMETOLOGY METHOD 10/17/2024 5:54 PM [facility] RDW 12.5 11.0 - 15.0 % LAB HEMETOLOGY METHOD 10/17/2024 5:54 PM [facility] Platelets 302 130 - 400 K/mcL LAB HEMETOLOGY METHOD 10/17/2024 5:54 PM [facility] MPV 10.4 7.0 - 11.0 FL LAB HEMETOLOGY METHOD 10/17/2024 5:54 PM [facility] NRBC 0.0 <1.0 % LAB HEMETOLOGY METHOD 10/17/2024 5:54 PM [facility] NRBC Absolute 0.00 <0.10 K/mcL LAB HEMETOLOGY METHOD 10/17/2024 5:54 PM EST [facility] Blood Venous blood specimen / Unknown Venipuncture / Unknown 10/17/2024 2:36 PM EST 10/17/2024 2:36 PM EST us Edwina SOLER LAB BLOOD ORDERABLES Final Result [facility] [address] [place] [address], [place] [phone] * HPV with reflex genotype (10/17/2024 1:58 PM EST) HPV Negative Negative LAB MICROBIOLOGY METHOD 10/18/2024 3:12 PM EST [facility] Brushing/Spatula Cervix uteri structure / Unknown 10/17/2024 1:58 PM EST 10/18/2024 6:25 AM EST us Edwina Sosa [facility] MOLECULAR DIAGNOSTICS O RDERABLES Final Result [facility] [address] [place] [address], [place] [phone] * Pap smear (10/17/2024 1:58 PM EST) Interpretation Negative for intraepithelial lesion or malignancy 10/20/2024 6:55 PM EST [facility] General Categorization Negative 10/20/2024 6:55 PM EST [facility] Other Findings Shift in bill suggestive of bacterial vaginosis 10/20/2024 6:55 PM EST [facility] LMP 10/01/2024 10/20/2024 6:55 PM EST [facility] Specimen Adequacy Satisfactory for evaluation, endocervical/dolan sformation zone component absent 10/20/2024 6:55 PM EST [facility] Pap Methodology Liquid Based Pap Test 10/20/2024 6:55 PM EST [facility] Disclaimer The Pap test is a screening test which carries an inherent false negative rate. These test results should be correlated with the patient's clinical findings and history. This Pap test was processed using an automated screening system. Technical cytopathology services provided by [facility], at [address] [place] [address] (CLIA # [id number]/Gloria Pena MD, Cane Flume Feeding Machine Operator.) 10/20/2024 6:55 PM [facility] Console Pap Interpretation Reported 10/20/2024 6:55 PM [facility] Brushing/Spatula Cervix uteri structure / Unknown 10/17/2024 1:58 PM EST 10/17/2024 1:58 PM EST Edwina SOLER LAB CYTOLOGY ORDERABLES Fin al Result [facility]) [facility] [address] [place] [address], * Lipid panel (03/25/2021) LDL/HDL Ratio 2 0 - 4 Triglycerides 43 0 - 150 mg/dL Cholesterol 161 0 - 200 mg/dL HDL 68 >=40 mg/dL LDL Cholesterol 85 0 - 100 mg/dL Blood Venous blood specimen / Unknown Historical Provider LAB BLOOD ORDERABLES Bell l Result from Last 3 Months or Most Recently Relevant to Health Maintenance Insurance [facility] [address] [place] [address] Care Teams Economic Forecaster Relationship Specialty Start Date End Date Alla Branham PA [address] [place] [id number] PCP - General Physician [place] Man 11/07/24
== END 2025-01-09 10:27 | disposition home or self-care (01) ==
LOC: HO.HMCFM 09:21
PROVIDERS: PCP Physician Assistant Medical; Visit Provider Physician Assistant Medical
DX: R53.83 Other fatigue (principal); Z13.6 Encounter for screening for cardiovascular disorders; Z00.00 Encounter for general adult medical examination without abnormal findings

== ENCOUNTER → 2025-01-09 09:20 | Outpatient (BNVA) | payer BC, SELFPAY | PROVIDERS: PCP Physician Assistant Medical; Visit Provider Physician Assistant Medical | DX: Z00.00 Encounter for general adult medical examination without abnormal findings (principal); R53.83 Other fatigue | CPT/HCPCS: 96127 ==

== ENCOUNTER 2025-01-09 10:44 | Outpatient (REF) | payer BC, SELFPAY ==
--- OUTSIDE RECORDS SUMMARY | 2025-01-09 12:28 | XMS_ITS | Clinical Summary ---
Author Organization [facility] [address] Address [address] [place] [address] Phone Care Team Providers Care Electrical Wirer Name Role Phone Alla Branham Primary Care Provider [phone] Allergies Active Allergy Reactions Criticality Noted Date [...] PM EST Hospital Encounter Radiology Department - [address] [phone] Abnormal mammogram Discharge Disposition: Home or Self Care 11/10/2024 12:39 PM EST - 11/10/2024 11:59 PM EST Hospital Encounter Radiology Department - [address] [phone] Abnormal mammogram Discharge Disposition: Home or Self Care 11/07/2024 2:46 PM EST - 11/07/2024 11:59 PM EST Hospital Encounter Radiology Department - [address] [address] Abnormal mammogram Discharge Disposition: Home or Self Care 11/07/2024 2:46 PM EST - 11/07/2024 11:59 PM EST Hospital Encounter Radiology Department - [address] [phone] Abnormal mammogram Discharge Disposition: Home or Self Care 10/25/2024 7:32 AM EST - 10/25/2024 11:59 PM EST Hospital Encounter Radiology Department - [address] [phone] Encounter for screening mammogram for malignant neoplasm of breast Discharge Disposition: Home or Self Care 10/17/2024 1:30 PM EST Office Visit Obstetrics and Gynecology - [address] [phone] Edwina Sosa, ADIS Women's annual routine gynecological [...] cancer Maternal Grandmother mets present-Pt treated in [place] Anemia Mother Hypertension Mother Multiple sclerosis Other [...] Signed Date: 11/11/2024 14:20 ET Workstation ID: [id number] Transcribed By: Self Edit Transcribed Date: 11/11/2024 14:18 ET Impressions 11/10/2024 1:53 PM EST Seemingly successful ultrasound-guided core biopsy of a left breast lesion. ??Pathologic analysis is pending. POS - [id number] -------- FINAL REPORT -------- Dictated By: Melissa Thayer Dictated Date: 11/10/2024 13:49 ET Assigned Physician: Melissa Thayer Reviewed and Electronically Signed By: Melissa Thayer Signed Date: 11/10/2024 13:53 ET Workstation ID: [id number] Transcribed By: Self Edit Transcribed Date: 11/10/2024 [...] breastlesion. Pathologic analysis is pending. POS - [id number] -------- FINAL REPORT -------- Dictated By: Melissa Thayer Dictated Date: 11/10/2024 13:49 ET Assigned Physician: Melissa Thayer Reviewed and Electronically Signed By: Melissa Thayer Signed Date: 11/10/2024 13:53 ET Workstation ID: [id number] Transcribed By: Self Edit Transcribed Date: 11/10/2024 [...] Signed Date: 11/11/2024 14:20 ET Workstation ID: [id number] Transcribed By: Self Edit Transcribed Date: 11/11/2024 14:18 ET Impressions 11/10/2024 1:53 PM EST Seemingly successful ultrasound-guided core biopsy of a left breast lesion. ??Pathologic analysis is pending. POS - [id number] -------- FINAL REPORT -------- Dictated By: Melissa Thayer Dictated Date: 11/10/2024 13:49 ET Assigned Physician: Melissa Thayer Reviewed and Electronically Signed By: Melissa Thayer Signed Date: 11/10/2024 13:53 ET Workstation ID: [id number] Transcribed By: Self Edit Transcribed Date: 11/10/2024 [...] breastlesion. Pathologic analysis is pending. POS - [id number] -------- FINAL REPORT -------- Dictated By: Melissa Thayer Dictated Date: 11/10/2024 13:49 ET Assigned Physician: Melissa Thayer Reviewed and Electronically Signed By: Melissa Thayer Signed Date: 11/10/2024 13:53 ET Workstation ID: [id number] Transcribed By: Self Edit Transcribed Date: 11/10/2024 13:49 ET us [facility] PROCED[facility] Edited Re shoshana - [...] invasive carcinoma identified. 11/11/2024 9:07 AM EST [facility] Clinical Information 10:00 LEFT BREAST 5 CMFN- HYPOECHOIC SOLID WELL CIRCUMSCRIBED LESION ?FIBROADENOMA VS OTHER. HEART CLIP [id number] 11/11/2024 9:07 AM EST [facility] Gross Description A. Breast, Left, 10:00 5 cmfn - hypoechoic solid well circumscribed lesion ?fibroadenoma vs other. heart clip [id number]: Labeled 1000 lef breast L . Received [...] Approximately 11 hours TS 11/11/2024 9:07 AM [facility] Disclaimer Unless otherwise specified, all tissue is 10% NB formalin fixed and paraffin embedded. 11/11/2024 9:07 AM [facility] Tissue Left breast structure / Unknown 11/10/2024 1:00 PM EST 11/10/2024 4:44 PM EST Comment:10:00 LEFT BREAST 5 CMFN- HYPOECHOIC SOLID WELL CIRCUMSCRIBED LESION ?FIBROADENOMA VS OTHER. HEART CLIP [id number] us Melissa Thayer MD LAB PATHOLOGY ORDERABLES Final R esult [facility]) [facility] [address] [place] [address], * (ABNORMAL) US Breast Limited bilat (11/07/2024 [...] for left breast 10:00 mass Mammo Location: [facility], [address] [place] [address], [address], . -------- FINAL REPORT -------- Dictated By: Dane Bautista Dictated Date: 11/07/2024 15:34 ET Assigned Physician: Dane Bautista Reviewed and Electronically Signed By: Dane Bautista Signed Date: 11/07/2024 15:39 ET Workstation ID: [id number] Transcribed By: Self Edit Transcribed Date: 11/07/2024 [...] for left breast 10:00 mass Mammo Location: [facility], [address] [place] [address], [address], . -------- FINAL REPORT -------- Dictated By: Dane Bautista Dictated Date: 11/07/2024 15:34 ET Assigned Physician: Dane Bautista Reviewed and Electronically Signed By: Dane Bautista Signed Date: 11/07/2024 15:39 ET Workstation ID: [id number] Transcribed By: Self Edit Transcribed Date: 11/07/2024 [...] for left breast 10:00 mass Mammo Location: [facility], [address] [place] [address], [address], . -------- FINAL REPORT -------- Dictated By: Dane Bautista Dictated Date: 11/07/2024 15:34 ET Assigned Physician: Dane Bautista Reviewed and Electronically Signed By: Dane Bautista Signed Date: 11/07/2024 15:39 ET Workstation ID: [id number] Transcribed By: Self Edit Transcribed Date: 11/07/2024 [...] for left breast 10:00 mass Mammo Location: [facility], [address] [place] [address], [address], . -------- FINAL REPORT -------- Dictated By: Dane Bautista Dictated Date: 11/07/2024 15:34 ET Assigned Physician: Dane aButista Reviewed and Electronically Signed By: Dane Bautista Signed Date: 11/07/2024 15:39 ET Workstation ID: [id number] Transcribed By: Self Edit Transcribed Date: 11/07/2024 [...] Additional bilateral breast imaging recommended. Mammo Location: [facility], [address] [place] [address], [address], . -------- FINAL REPORT -------- Dictated By: Melissa Thayer Dictated Date: 10/25/2024 17:50 ET Assigned Physician: Melissa Thayer Reviewed and Electronically Signed By: Melissa Thayer Signed Date: 10/25/2024 18:00 ET Workstation ID: [id number] Transcribed By: Self Edit Transcribed Date: 10/25/2024 [...] Additional bilateral breast imaging recommended. Mammo Location: [facility], [address] [place] [address], [address], . -------- FINAL REPORT -------- Dictated By: Melissa Thayer Dictated Date: 10/25/2024 17:50 ET Assigned Physician: Melissa Thayer Reviewed and Electronically Signed By: Melissa Thayer Signed Date: 10/25/2024 18:00 ET Workstation ID: [id number] Transcribed By: Self Edit Transcribed Date: 10/25/2024 17:50 ET us Edwina Sosa CNM IMG BI PROCEDURES Final Res ult * Thyroid stimulating hormone with reflex to free t4 and free t3 (10/17/2024 2:36 PM EST) TSH 0.91 0.40 - 4.00 mcIU/mL LAB CHEMISTRY METHOD 10/17/2024 6:07 PM EST [facility] Blood Venous blood specimen / Unknown Venipuncture / Unknown 10/17/2024 2:36 PM EST 10/17/2024 2:36 PM EST us Edwina Sosa CNM LAB BLOOD ORDERABLES Final Result [facility] [address] [place] [address], [place] [phone] * (ABNORMAL) Complete blood count (10/17/2024 2:36 PM EST) [facility] WBC 8.8 4.8 - 10.8 K/mcL LAB HEMETOLOGY METHOD 10/17/2024 5:54 PM [facility] RBC 4.20 3.80 - 4.80 M/mcL LAB HEMETOLOGY METHOD 10/17/2024 5:54 PM [facility] Hemoglobin 12.3 11.5 - 16.0 g/dL LAB HEMETOLOGY METHOD 10/17/2024 5:54 PM [facility] Hematocrit 38.5 35.0 - 47.0 % LAB HEMETOLOGY METHOD 10/17/2024 5:54 PM [facility] MCV 92.1 79.0 - 98.0 FL LAB HEMETOLOGY METHOD 10/17/2024 5:54 PM [facility] MCH 29.4 27.0 - 32.0 pcg LAB HEMETOLOGY METHOD 10/17/2024 5:54 PM [facility] MCHC 31.9(L) 32.0 - 37.0 g/dL LAB HEMETOLOGY METHOD 10/17/2024 5:54 PM [facility] RDW 12.5 11.0 - 15.0 % LAB HEMETOLOGY METHOD 10/17/2024 5:54 PM [facility] Platelets 302 130 - 400 K/mcL LAB HEMETOLOGY METHOD 10/17/2024 5:54 PM [facility] MPV 10.4 7.0 - 11.0 FL LAB HEMETOLOGY METHOD 10/17/2024 5:54 PM [facility] NRBC 0.0 <1.0 % LAB HEMETOLOGY METHOD 10/17/2024 5:54 PM [facility] NRBC Absolute 0.00 <0.10 K/mcL LAB HEMETOLOGY METHOD 10/17/2024 5:54 PM EST [facility] Blood Venous blood specimen / Unknown Venipuncture / Unknown 10/17/2024 2:36 PM EST 10/17/2024 2:36 PM EST us Edwina SOLER LAB BLOOD ORDERABLES Final Result [facility] [address] [place] [address], [place] [phone] * HPV with reflex genotype (10/17/2024 1:58 PM EST) HPV Negative Negative LAB MICROBIOLOGY METHOD 10/18/2024 3:12 PM EST [facility] Brushing/Spatula Cervix uteri structure / Unknown 10/17/2024 1:58 PM EST 10/18/2024 6:25 AM EST us Edwina Sosa [facility] MOLECULAR DIAGNOSTICS O RDERABLES Final Result [facility] [address] [place] [address], [place] [phone] * Pap smear (10/17/2024 1:58 PM EST) Interpretation Negative for intraepithelial lesion or malignancy 10/20/2024 6:55 PM EST [facility] General Categorization Negative 10/20/2024 6:55 PM EST [facility] Other Findings Shift in bill suggestive of bacterial vaginosis 10/20/2024 6:55 PM EST [facility] LMP 10/01/2024 10/20/2024 6:55 PM EST [facility] Specimen Adequacy Satisfactory for evaluation, endocervical/dolan sformation zone component absent 10/20/2024 6:55 PM EST [facility] Pap Methodology Liquid Based Pap Test 10/20/2024 6:55 PM EST [facility] Disclaimer The Pap test is a screening test which carries an inherent false negative rate. These test results should be correlated with the patient's clinical findings and history. This Pap test was processed using an automated screening system. Technical cytopathology services provided by [facility], at [address] [place] [address] (CLIA # [id number]/Gloria Pena MD, Bolt Machine Operator.) 10/20/2024 6:55 PM [facility] Console Pap Interpretation Reported 10/20/2024 6:55 PM [facility] Brushing/Spatula Cervix uteri structure / Unknown 10/17/2024 1:58 PM EST 10/17/2024 1:58 PM EST Edwina SOLER LAB CYTOLOGY ORDERABLES Fin al Result [facility] [address] [place] [address], * Lipid panel (03/25/2021) LDL/HDL Ratio 2 0 - 4 Triglycerides 43 0 - 150 mg/dL Cholesterol 161 0 - 200 mg/dL HDL 68 >=40 mg/dL LDL Cholesterol 85 0 - 100 mg/dL Blood Venous blood specimen / Unknown Historical Provider LAB BLOOD ORDERABLES Bell l Result from Last 3 Months or Most Recently Relevant to Health Maintenance Insurance [facility] [address] [place] [address] Care Teams Electrical Wirer Relationship Specialty Start Date End Date Alla Branham PA [address] [place] [id number] PCP - General Physician Track Inspecting Supervisor 11/07/24
[2025-01-09 14:51] LABS: Alanine Aminotransferase 16 U/L (0-31); Albumin Level 4.2 g/dL (3.5-5.0); Alkaline Phosphatase 54 U/L (39-117); Anion Gap 8 (12-20); Aspartate Amino Transferase 17 U/L (5-31); Bilirubin Total 0.5 mg/dL (0.0-1.0); Blood Urea Nitrogen 13 mg/dL (9-16); Calcium 9.1 mg/dL (8.4-10.2); Carbon Dioxide 27 mmol/L (22-29); Chloride 108 mmol/L (96-108); Cholesterol 154 mg/dL (<200); Estimated Glomerular Filt Rate > 60; Glucose Random 90 mg/dL (60-115); HDL Cholesterol 57 mg/dL (>40); LDL Cholesterol Calculated 88 mg/dL (<100); Sodium 139 mmol/L (135-145); Triglycerides 49 mg/dL (<150)
[2025-01-10 21:58] LABS: Lyme Abs Screen <0.90 index
[2025-01-13 14:28] LABS: Vitamin D 25-OH, D2 <4 ng/mL; Vitamin D 25-OH, D3 8 ng/mL; Vitamin D 25-OH, Total 8 ng/mL (30-100)
== END 2025-01-09 10:45 | disposition home or self-care (01) ==
LOC: HO.WFDLDS 10:44
PROVIDERS: Visit Provider Physician Assistant Medical
DX: Z00.00 Encounter for general adult medical examination without abnormal findings (principal); M85.80 Other specified disorders of bone density and structure, unspecified site; R53.83 Other fatigue; Z13.6 Encounter for screening for cardiovascular disorders; E78.5 Hyperlipidemia, unspecified
CPT/HCPCS: 36415; 80053; 80061; 82306; 86617; 86618